=== PATIENT | female | born 1930 | race Caucasian/White ===

== ENCOUNTER 2019-01-21 13:18 | Emergency (ER) | payer MEDICARE, SELFPAY ==
[~2019-01-21] VITALS: Ht 154.9 cm; Wt 59.1 kg
[~2019-01-21 13:18] MED LIST: ASPI-41 PO; DONE5TAB7 PO; LEVO50TA8 PO; LISI-600 PO; SOTA80TA46 PO
--- NOTE | 2019-01-21 15:13 | NUR ---
PT TO CT VIA BRAD
--- NOTE | 2019-01-21 15:24 | NUR ---
PT BACK FROM CT
[2019-01-21 15:48] LABS: BASOPHILS % (AUTO) 0.2 % (0-1); EOSINOPHILS # (AUTO) 0.1 X10'3 (0-0.9); EOSINOPHILS % (AUTO) 2.6 % (0-6); HEMATOCRIT 32.1 % (35.0-45.0); LYMPHOCYTES # (AUTO) 1.4 X10'3 (1.1-4.8); LYMPHOCYTES % (AUTO) 32.1 % (21-51); MEAN CORPUSCULAR HEMOGLOBIN 40.8 PG (27.0-31.0); MEAN CORPUSCULAR HGB CONC 34.2 g/dL (33.0-36.5); MEAN CORPUSCULAR VOLUME 119.5 FL (78-98); MEAN PLATELET VOLUME 10.5 FL (7.4-10.4); MONOCYTES # (AUTO) 0.4 X10'3 (0-0.9); MONOCYTES % (AUTO) 8.5 % (2-12); NEUTROPHILS # (AUTO) 2.5 X10'3 (1.8-7.7); NEUTROPHILS % (AUTO) 56.6 % (42-75); PLATELET COUNT 141 X10'3 (140-440); RED BLOOD COUNT 2.68 X10'6 (4.20-5.60); RED CELL DISTRIBUTION WIDTH 17.4 % (11.5-14.5); WHITE BLOOD COUNT 4.4 X10'3 (4.5-11.0)
[2019-01-21 15:57] LABS: CLARITY,URINE CLEAR (Clear); COLOR,URINE AMBER (Yellow); GLUCOSE, URINE NEGATIVE (Neg); KETONES,URINE TRACE mg/dl (Neg); LEUKOCYTE ESTERASE ,URINE NEGATIVE (Neg); NITRITES, URINE NEGATIVE (Neg); OCCULT BLOOD,URINE NEGATIVE (Neg); PH,URINE 5.5 (4.8-8.0); PROTEIN,URINE NEGATIVE (Neg)
[2019-01-21 16:00] LABS: UA COLLECTION TYPE STRAIGHT CATH
[2019-01-21 16:02] LABS: ALANINE AMINOTRANSFERASE 13 U/L (12-78); ALBUMIN 3.1 G/DL (3.4-5.0); ALKALINE PHOSPHATASE 102 IU/L (46-116); ANION GAP 2 (8-16); ASPARTATE AMINO TRANSFERASE 21 U/L (10-37); BILIRUBIN,TOTAL 0.5 MG/DL (0.1-1.0); BLOOD UREA NITROGEN 26 MG/DL (7-18); BUN/CREATININE RATIO 35.6 (6.6-38.0); CALCIUM 8.6 MG/DL (8.5-10.1); CHLORIDE 107 MMOL/L (99-107); CREATININE 0.73 MG/DL (0.40-0.90); GLUCOSE 96 MG/DL (70-104); POTASSIUM 3.9 MMOL/L (3.5-5.1); SODIUM 145 MMOL/L (135-145); TOTAL CARBON DIOXIDE 35.9 MMOL/L (24-32); TOTAL PROTEIN 6.1 G/DL (6.4-8.2); eGFR 75 ML/MIN
[2019-01-21 16:05] LABS: ANISOCYTOSIS 1+; MICROCYTOSIS 2+; PLATELET ESTIMATE NORMAL
[2019-01-21 16:22] LABS: PARTIAL THROMBOPLASTIN TIME 32 SECONDS (22-32)
[2019-01-21 16:27] VITALS: BP 136/94
== END 2019-01-21 16:35 | disposition home or self-care (01) ==
LOC: ER 13:18
DX: R51 Headache (principal); R42 Dizziness and giddiness; F03.90 Unspecified dementia, unspecified severity, without behavioral disturbance, psychotic disturbance, mood disturbance, and anxiety; Z79.82 Long term (current) use of aspirin; Z79.01 Long term (current) use of anticoagulants; Z79.899 Other long term (current) drug therapy; W18.39XA Other fall on same level, initial encounter; Y93.89 Activity, other specified; Y92.89 Other specified places as the place of occurrence of the external cause; Y99.8 Other external cause status
CPT/HCPCS: 36415; 70450; 71045; 80053; 81003; 85025; 85610; 85730; 93005; 99284

== ENCOUNTER 2019-01-24 00:24 | Inpatient (IN) | payer MEDICARE ==
[~2019-01-24] VITALS: Ht 154.9 cm; Wt 59.1 kg
[2019-01-24] VITALS (18 sets, daily range): BP systolic 47–116; BP diastolic 18–79
[2019-01-24 01:32] LABS: BASOPHILS % (AUTO) 0.1 % (0-1); EOSINOPHILS % (AUTO) 0 % (0-6); HEMATOCRIT 35.7 % (35.0-45.0); HEMOGLOBIN 12.4 g/dl (12.0-16.0); LYMPHOCYTES # (AUTO) 0.8 X10'3 (1.1-4.8); LYMPHOCYTES % (AUTO) 6.5 % (21-51); MEAN CORPUSCULAR HEMOGLOBIN 41.1 PG (27.0-31.0); MEAN CORPUSCULAR HGB CONC 34.8 g/dL (33.0-36.5); MEAN CORPUSCULAR VOLUME 118.1 FL (78-98); MONOCYTES # (AUTO) 0.6 X10'3 (0-0.9); MONOCYTES % (AUTO) 5.3 % (2-12); NEUTROPHILS # (AUTO) 10.3 X10'3 (1.8-7.7); NEUTROPHILS % (AUTO) 88.1 % (42-75); PLATELET COUNT 190 X10'3 (140-440); RED BLOOD COUNT 3.02 X10'6 (4.20-5.60); WHITE BLOOD COUNT 11.7 X10'3 (4.5-11.0)
[2019-01-24 01:47] LABS: PARTIAL THROMBOPLASTIN TIME 30 SECONDS (22-32)
[2019-01-24 01:50] LABS: ALANINE AMINOTRANSFERASE 24 U/L (12-78); ALBUMIN 3.7 G/DL (3.4-5.0); ALBUMIN/GLOBULIN RATIO 1.2 (1.1-1.5); ALKALINE PHOSPHATASE 94 IU/L (46-116); ANION GAP 8 (8-16); ASPARTATE AMINO TRANSFERASE 44 U/L (10-37); BILIRUBIN,TOTAL 1.4 MG/DL (0.1-1.0); BLOOD UREA NITROGEN 31 MG/DL (7-18); BUN/CREATININE RATIO 32.3 (6.6-38.0); CALCIUM 9.2 MG/DL (8.5-10.1); CHLORIDE 105 MMOL/L (99-107); CREATININE 0.96 MG/DL (0.40-0.90); GLUCOSE 150 MG/DL (70-104); MAGNESIUM 1.8 MG/DL (1.5-2.4); POTASSIUM 3.6 MMOL/L (3.5-5.1); SODIUM 146 MMOL/L (135-145); TOTAL CARBON DIOXIDE 32.7 MMOL/L (24-32); TOTAL PROTEIN 6.9 G/DL (6.4-8.2); eGFR 55 ML/MIN
--- NOTE | 2019-01-24 01:50 | NUR ---
informed MD of the skin tenting when I was starting her IV.
[2019-01-24 01:59] LABS: LIPASE 188 U/L (73-393)
[2019-01-24 02:00] LABS: ETHANOL < 0.010 GM/DL (0.0-0.010)
[2019-01-24] MEDS ORDERED: normal saline 1000ml 1,000 ML IV ONE ×3 (02:23→20:10)
[2019-01-24] MEDS ORDERED: ondansetron/PF 4mg/2ml inj IV ONE (02:25)
[2019-01-24] MEDS ORDERED: normal saline 1000ML IV soln IVB ONE (02:25)
[2019-01-24] MEDS ORDERED: iohexol 300mg/ml 100ml inj. ONE (02:39)
[2019-01-24] MEDS: morphine 2 MG/ML inj. syringe IV PRN ×4 (02:56→21:27)
[2019-01-24] MEDS: diatr meglu/diatrizoate 30ml oral sol.-(3 dose) bottle PO SCH ×3 (03:10→03:55)
--- NOTE | 2019-01-24 03:38 | NUR ---
NS ordered at 200 mls/hr, pump set at 100/mls hr to accomodate for slow IV line
[2019-01-24 05:45] LABS: TROPONIN I < 0.04 NG/ML (0.0-0.05)
[2019-01-24 05:57] LABS: CLARITY,URINE CLEAR (Clear); COLOR,URINE YELLOW (Yellow); GLUCOSE, URINE NEGATIVE (Neg); KETONES,URINE TRACE mg/dl (Neg); LEUKOCYTE ESTERASE ,URINE NEGATIVE (Neg); NITRITES, URINE NEGATIVE (Neg); OCCULT BLOOD,URINE SMALL (Neg); PROTEIN,URINE TRACE mg/dl (Neg); UROBILINOGEN,URINE 0.2 E.U/dL (0.2-1.0)
[2019-01-24 06:08] LABS: UA COLLECTION TYPE STRAIGHT CATH
[2019-01-24] MEDS ORDERED: normal saline 1000ml 1,000 ML IV SCH (06:11)
[2019-01-24] MEDS ORDERED: ondansetron/PF 4mg/2ml inj IV PRN (06:15)
[2019-01-24 06:18] LABS: HYALINE CASTS 0-3 /LPF (NEGATIVE); MUCUS STRANDS MANY /LPF (Neg)
[2019-01-24 06:20] LABS: BACTERIA,URINE NONE SEEN /HPF (Neg); SQUAMOUS EPITHELIAL CELL,UR NONE SEEN /LPF (FEW)
--- NOTE | 2019-01-24 06:20 | NUR ---
received report on this patient at the bedside, RN giving report is helping with insertion of NG tube and patients heart rate continues to go up into the 160s along with desatting into the 80s while attempting so they have stopped and notified VELAZQUEZ. Patient is on O2 mask and sats are starting to come up into the 90s. Family is outside the room and are hysterical due to discussing code status.
--- NOTE | 2019-01-24 06:23 | NUR ---
attempted NG tube to right nare. Unsuccessful placement. She desaturated to 87% with HR increasing to 200 BPM. She did return to 160s. Her oxygen level increased 93%. Will hold off on placement.
--- NOTE | 2019-01-24 06:27 | NUR ---
AFTER RETURN FROM CT, PT HEART RATE >140, AN INCREASE FROM 80. SBP 200, CONSISTENT WITH PREVIOUS READINGS. PT BEGAN TO DESAT TO 88% ON 4L VIA NC. FACE MASK PLACED ON PATIENT WITH O2 INCREASED TO 10 L. O2 SATS IN LOW 90'S. MADE AWARE OF PT CONDITION AND ORDERED EKG AND PATIENT PLACED ON 5 LEAD.
[2019-01-24] MEDS: metoprolol tartrate 1mg/ml inj IV SCH ×3 (06:51→07:54)
[2019-01-24 07:53] LABS: PLATELET ESTIMATE NORMAL
[2019-01-24 07:54] LABS: ANISOCYTOSIS 1+
[2019-01-24] MEDS ORDERED: heparin, porcine 5000 units/ml vial SQ SCH (08:00)
[2019-01-24] MEDS ORDERED: CefTRIAXone/D5W-Rocephin 1gm 50 ML IV SCH (08:00)
[2019-01-24] MEDS ORDERED: hydrALAZINE 20mg/ml inj. IV ONE (08:20)
[2019-01-24] MEDS ORDERED: hydrALAZINE 20mg/ml inj. IV PRN (08:20)
[2019-01-24] MEDS ORDERED: fentaNYL/PF 50MCG/1 ML 2ML syringe IV ONE (08:25)
[2019-01-24] MEDS ORDERED: metoprolol tartrate 1mg/ml inj IV ONE (08:25)
[2019-01-24] MEDS ORDERED: LIDOcaine 1% w/EPI 1:200,000 injection 10mL vial IM ONE (08:35)
[2019-01-24] MEDS ORDERED: LIDOcaine 1% W/epiNEPHrine 1:200,000 10ml vial IJ ONE (09:00)
--- NOTE | 2019-01-24 09:00 | NUR ---
Marcus THOMPSON and RT and myself at the bedside, fentanyl given for relaxation to provide comfort for NG placement, Marcus administered lidocaine/epi intranasally and NG was successfully placed which we got out 600 ml of stomach contents until patient was able to reach into her mouth and grab NG. Replacement was unsuccessful and patient required further suctioning. NT suction ordered per MARCUS THOMPSON and RT reported that sats were in the 70's while suctioning. SATs are stable again at 91% which is goal per MARCUS THOMPSON and RT is performing an ABG per MD order.
--- NOTE | 2019-01-24 09:58 | NUR ---
talked to Dr. Loving about this patient possibly needing a cardizem drip if patients HR continues to go up into the 160s like it has. He said he will admit to PCU instead and I can start a cardizem drip at 5mcg if needed.
[2019-01-24 10:05] LABS: ABG BASE EXCESS -3.3 mmol/L (-2.0-3.0); ABG OXYGEN SATURATION 93.3 % (95-98); ABG PCO2 (T) 52.2 mmHg (35.0-45.0); ABG PO2 (T) 73.1 mmHg (83-108); FCOHb 1.4 % (0.5-1.5); FMetHb 0.3 % (0.3-1.12); FO2Hb 91.7 % (94-100); RESPIRATORY RATE (OBSERVED) 20 b/min; TOTAL HEMOGLOBIN 13.4 G/dl (12.0-16.0)
[2019-01-24] MEDS ORDERED: diltiazem-NS 100mg/100ml 100 ML IV PRN (11:50)
--- NOTE | 2019-01-24 12:25 | NUR ---
Received report from Cori KAUR. Patient will be admitted to room 3016N. Patient does not currently have an NG or on cardizem gtt--Will speak to
--- NOTE | 2019-01-24 12:30 | NUR ---
Patient admitted to room 3017B. Patient connected to mobile bedside monitoring. 2 RN skin check done, MRSA swab sent to lab. Currently on 5 L nonrebreather. HR currently 132, will initiate Cardizem gtt.
[2019-01-24] MEDS ORDERED: SOTA80TA10 PO (12:38)
[2019-01-24] MEDS ORDERED: LISI10TA4 PO (12:42)
[2019-01-24] MEDS: ipratropium/albuterol 3ml nebule NEB SCH ×2 (14:00→20:00)
--- NOTE | 2019-01-24 14:38 | NUR ---
Paged DR Loving that family is bedside PAGER ID: [phone] MESSAGE: Nalini lópez [phone]. RE Shameka Joy [id number]. Family is at bedside and would like to speak to you regarding plan and code status. Thank you!
[2019-01-24] MEDS ORDERED: albuterol 2.5 MG/3 ML nebule NEB PRN (15:15)
[2019-01-24] MEDS ORDERED: piperacillin/tazo 3.375gm/50ml 50 ML IV SCH (16:00)
--- NOTE | 2019-01-24 16:53 | NUR ---
Able to place new NG tube, waiting for image verification. Paged Dr Loving for order for mittens because patient has already been pulling at lines and prior NG's PAGER ID: [phone] MESSAGE: Nalini lópez [phone]. RE Cindi Joy. Placed new NG tube. Can I have order for mittens please? Thank you!
--- NOTE | 2019-01-24 18:27 | NUR ---
Patient in room PCU 3017. I have received report from VINCENT Gayle and had the opportunity to ask questions and assume patient care.
[2019-01-24 19:11] LABS: ABG BASE EXCESS -4.5 mmol/L (-2.0-3.0); ABG HCO3 21.7 mmol/L (22.0-26.0); ABG OXYGEN SATURATION 90.5 % (95-98); ABG PCO2 (T) 46.1 mmHg (35.0-45.0); ABG PH (T) 7.295 (7.350-7.450); ABG PO2 (T) 66.3 mmHg (83-108); ALLEN'S TEST Positive; FCOHb 0.8 % (0.5-1.5); FLOW 5 L/min; FMetHb 0.3 % (0.3-1.12); FO2Hb 89.5 % (94-100); PATIENT TEMPERATURE 37.7; TOTAL HEMOGLOBIN 13.1 G/dl (12.0-16.0)
[2019-01-24] MEDS ORDERED: lactobacillus rhamnosus 10,000 MMU CELLS/CAPSULE PO SCH (20:00)
[2019-01-24] MEDS ORDERED: morphine 5 MG/ML injection IV PRN (20:05)
[2019-01-24] MEDS ORDERED: LORazepam 2 mg/ml vial IV PRN (20:50)
--- NOTE | 2019-01-24 21:00 | NUR ---
Received orders over telephone to place patient on comfort care per Dr. Rodriguez.
--- NOTE | 2019-01-25 00:11 | NUR ---
Upon getting shift report, Nalini KAUR and Janae were notified of our patient's temperature and low BP. Nalini and Janae entered the room and noted an automatic BP of 86/28 and rectal temp of 99.0. Next manual BP we obtained was 68 systolic. A rapid response was called by VINCENT Gayle, family was called by Nalini KAUR, and Dr. Garland was called by Tri KAUR. Dr. garland ordered a 1 liter bolus to bring the patient BP up, lab arrived, RT, ICU charge nurse Jerel, Charge nurse Dulce on PCU as well. A manual BP was taken on both arms by VINCENT Bartlett and was noted to be 47 systolic. During rapid response, I was called to a code blue in the cardiac quality assurance qa lab analyst. Patient care was then taken over and delegated to VINCENT Doss, charge nurse Dulce and rapid response team members. After I transcribed code blue in quality assurance qa lab analyst, I came back to assume care of this Patient. She received 1 L bolus and after bolus was finished, BP began arose to a systolic of 101. Once Bolus was complete, patient BP declined once again to low 80's systolic from automatic cuff. Manual BP was obtained reading in 60's systolic. Called Dr. Garland and informed him of patient BP in which he ordered another 1 L bolus. I informed patient family upon their arrival of patient condition, as well as requested Dr. Garland to come speak with the family. The patient's lactic acid came back elevated indicating possible sepsis. Dr. Garland spoke with the family, whom ultimately decided to place patient on DNR status with comfort care. Patient survived until 2324 when time of was announced by Tri Torres RN and [employer] [facility] [employer] Gracie. Patient was kept comfortable with 1 mg morphine Q1H until time of . Patient family notified of time of and remained at bedside until then. Post mortem care performed by Audrey Heredia NA and BOGDAN Gomez. [facility] was called, donor network, Dr. Garland, and Nursing bus repair supervisor Anthony notified.
[2019-01-25] MEDS ORDERED: lisinopril 20mg tablet PO SCH (08:00)
[2019-01-25] MEDS ORDERED: lisinopril 10 MG tablet PO SCH (08:00)
[2019-01-25] MEDS ORDERED: levoTHYROXINE 25mcg tablet PO SCH (08:00)
[2019-01-25] MEDS ORDERED: donepezil 5mg tablet PO SCH (08:00)
[2019-01-25] MEDS ORDERED: pneumococcal 23-VAL P-sac vacc 25 mcg/0.5ml vial IMVAC ONE (10:00)
== END 2019-01-25 00:45 | disposition expired | DRG 871 ==
LOC: ER 00:25 → ED HOLD 06:11 → PCU 3S 12:30
PROVIDERS: ADMIT Internal Medicine; ATTEND Family Medicine
PROC: BW211ZZ Computerized Tomography (CT Scan) of Abdomen and Pelvis using Low Osmolar Contrast (ICD-10-PCS; principal; 2019-01-24)
PROC: 0D9670Z Drainage of Stomach with Drainage Device, Via Natural or Artificial Opening (ICD-10-PCS; 2019-01-24)
DX: A41.9 Sepsis, unspecified organism (principal); J69.0 Pneumonitis due to inhalation of food and vomit; J96.01 Acute respiratory failure with hypoxia; J96.02 Acute respiratory failure with hypercapnia; E87.2 Acidosis; K31.1 Adult hypertrophic pyloric stenosis; K44.0 Diaphragmatic hernia with obstruction, without gangrene; E03.9 Hypothyroidism, unspecified; F03.90 Unspecified dementia, unspecified severity, without behavioral disturbance, psychotic disturbance, mood disturbance, and anxiety; Z51.5 Encounter for palliative care; I10 Essential (primary) hypertension; I48.91 Unspecified atrial fibrillation; Z66 Do not resuscitate; Z85.3 Personal history of malignant neoplasm of breast; Z86.73 Personal history of transient ischemic attack (TIA), and cerebral infarction without residual deficits; Z91.81 History of falling; Z91.018 Allergy to other foods; Z78.1 Physical restraint status; Z79.899 Other long term (current) drug therapy
CPT/HCPCS: 36415; 36600; 70450; 71045; 74018; 74177; 80053; 80320; 81001; 81003; 82803; 82948; 83605; 83690; 83735; 84443; 84484; 85018; 85025; 85610; 85730; 87040; 87081; 87088; 93005; 94640; 94760; 96365; 96375; 99291; 99292; G0378; J0696; J1644; J2060; J2270; J2405; J2543; J3010; J3490; J7030; Q9963; Q9967